=== PATIENT | male | born 1965 | race African-American/Black ===

== ENCOUNTER 2018-09-20 04:16 | Inpatient (IN) | payer BC ==
[~2018-09-20] VITALS: Ht 167.6 cm; Wt 89.4 kg
[2018-09-20] MEDS ORDERED: SODIUM CHLORIDE 0.9% 1,000 ML IV ONE (05:12)
[2018-09-20] MEDS ORDERED: ONDANSETRON HCL 4MG/2ML INJ IV STA (05:12)
[2018-09-20] MEDS ORDERED: MECLIZINE 25MG TABLET PO ONE ×2 (05:15→11:00)
[2018-09-20 06:26] LABS: CHLORIDE 106 mEq/L (98-107)
[2018-09-20 06:31] LABS: BASOPHILS % 0.5 % (0.0-2.0); EOSINOPHILS % 0.4 % (0.0-5.0); HEMATOCRIT. 42.1 % (42.0-52.0); LYMPHOCYTES % 25.8 % (20.0-50.0); MEAN PLATELET VOLUME 8.2 fl (7.4-10.4); MONOCYTES % 4.6 % (2.0-8.0); NEUTROPHILS % 68.7 % (40.0-76.0); PLATELET 286 x1000/uL (130-400); RED BLOOD CELL COUNT 4.53 mill/uL (4.7-6.1); RED CELL DISTRIBUTION WIDTH 12.4 % (11.6-14.6)
[2018-09-20] MEDS ORDERED: ASPIRIN 325MG EC TABLET PO ONE (13:45)
[2018-09-20] MEDS ORDERED: ONDANSETRON HCL 4MG/2ML INJ IV PRN (14:30)
[2018-09-20] MEDS ORDERED: ACETAMINOPHEN 325MG TABLET PO PRN (14:30)
[2018-09-20] MEDS ORDERED: DIPHENHYDRAMINE 50MG/ML VIAL IV PRN (14:30)
[2018-09-20] MEDS ORDERED: IPRATROPIUM/ALBUTEROL 0.5-3(2.5)MG/3ML NEB INH PRN (14:30)
[2018-09-20] MEDS ORDERED: CLONIDINE 0.1MG TABLET PO PRN (14:30)
[2018-09-20] MEDS ORDERED: POTASSIUM CHLORIDE 20MEQ TABLET SR PO NR (21:00)
[2018-09-20] MEDS: MECLIZINE 25MG TABLET PO PRN (22:22)
[2018-09-20 22:40] VITALS: BP_SYST 145; BP_SYST 160; BP_SYST 161; BP_DIAS 100; BP_DIAS 108; BP_DIAS 88
[2018-09-20 23:15] VITALS: BP 145/88
[2018-09-21 01:23] LABS: CHLORIDE 103 mEq/L (98-107)
[2018-09-21 04:00] VITALS: BP 144/94
[2018-09-21 07:51] LABS: BASOPHILS % 0.6 % (0.0-2.0); EOSINOPHILS % 0.9 % (0.0-5.0); HEMATOCRIT. 41.4 % (42.0-52.0); HEMOGLOBIN. 13.9 g/dL (14.0-18.0); LYMPHOCYTES % 54.4 % (20.0-50.0); MEAN CORPUSCULAR HEMOGLOBIN 31.1 pg (28.0-32.0); MEAN CORPUSCULAR VOLUME 92.5 fL (80.0-94.0); MONOCYTES % 5.4 % (2.0-8.0); NEUTROPHILS % 38.7 % (40.0-76.0); PLATELET 285 x1000/uL (130-400); RED BLOOD CELL COUNT 4.47 mill/uL (4.7-6.1); RED CELL DISTRIBUTION WIDTH 12.7 % (11.6-14.6)
[2018-09-21 07:56] VITALS: BP 155/98
[2018-09-21] MEDS: MECLIZINE 25MG TABLET PO PRN (10:18)
[2018-09-21] MEDS: ENOXAPARIN 40MG/0.4ML SYR SUBCUT SCH (10:18)
[2018-09-21 12:10] VITALS: BP 136/81
[2018-09-21 15:48] VITALS: BP 151/98
[2018-09-21 20:00] VITALS: BP_SYST 136; BP_SYST 143; BP_SYST 156; BP_DIAS 92; BP_DIAS 93
[2018-09-21] MEDS: HYDROCODONE/ACETAMINOPHEN 5/325MG TABLET PO PRN (21:44)
[2018-09-22] VITALS: BP 126/80
[2018-09-22 04:00] VITALS: BP 139/90
[2018-09-22 07:27] LABS: BASOPHILS % 0.9 % (0.0-2.0); EOSINOPHILS % 1.3 % (0.0-5.0); HEMATOCRIT. 42.8 % (42.0-52.0); HEMOGLOBIN. 14.2 g/dL (14.0-18.0); LYMPHOCYTES % 66.5 % (20.0-50.0); MEAN CORPUSCULAR HEMOGLOBIN 30.6 pg (28.0-32.0); MEAN CORPUSCULAR VOLUME 92.4 fL (80.0-94.0); MEAN PLATELET VOLUME 8.3 fl (7.4-10.4); MONOCYTES % 5.2 % (2.0-8.0); NEUTROPHILS % 26.1 % (40.0-76.0); PLATELET 284 x1000/uL (130-400); RED BLOOD CELL COUNT 4.63 mill/uL (4.7-6.1); RED CELL DISTRIBUTION WIDTH 12.5 % (11.6-14.6)
[2018-09-22 07:47] LABS: CHLORIDE 105 mEq/L (98-107)
[2018-09-22 08:00] VITALS: BP_SYST 146; BP_SYST 148; BP_SYST 166; BP_DIAS 86; BP_DIAS 95; BP_DIAS 98
[2018-09-22] MEDS: ENOXAPARIN 40MG/0.4ML SYR SUBCUT SCH (09:56)
[2018-09-22 12:00] VITALS: BP 136/88
[2018-09-22] MEDS: HYDROCODONE/ACETAMINOPHEN 5/325MG TABLET PO PRN (14:09)
[2018-09-22 15:54] VITALS: BP 136/88
[2018-09-22 16:00] VITALS: BP 127/88
== END 2018-09-22 18:30 | disposition home or self-care (01) | DRG 149 ==
LOC: ER 04:35 → 5WST 13:31 → CANRESERV 13:45 → ENRESERV 13:45 → EDBEDREQTM 15:02 → EDBEDREQSVC 15:02 → EDBEDREQ 15:02 → ENRESERV 21:55 → EDBEDREQ 22:30
PROVIDERS: ADMIT Internal Medicine; ATTEND Internal Medicine
DX: H81.10 Benign paroxysmal vertigo, unspecified ear (principal); J32.0 Chronic maxillary sinusitis; E87.6 Hypokalemia; F17.210 Nicotine dependence, cigarettes, uncomplicated; R26.9 Unspecified abnormalities of gait and mobility
CPT/HCPCS: 36415; 70544; 70551; 71045; 80048; 84443; 84484; 93005; 93880; 96374; 97116; 97162; 97166; 99285; G0482; J1650; J2405; J7030; J8597